=== PATIENT | male | born 1950 | race Caucasian/White ===

== ENCOUNTER → 2017-05-31 | Outpatient (CLI) | payer MEDICARE, BC ==
--- NOTE | 2017-05-31 10:25 | RAD ---
3 views right ankle 05/31/2017 2:00 AM Indication: RIGHT ANKLE PAIN X 1 DAY following injury Comparison: None Findings: There is diffuse edema noted surrounding the ankle. No fracture or dislocation is identified. Articular surfaces. An interrupted. Atherosclerotic vascular calcification is noted. Impression: Soft tissue edema about the ankle without evidence of acute fracture or alignment abnormality
== END | disposition home or self-care (01) ==
LOC: DXRADRC 08:24
PROVIDERS: ATTEND Nurse Practitioner Family
DX: M25.571 Pain in right ankle and joints of right foot (principal); I70.208 Unspecified atherosclerosis of native arteries of extremities, other extremity
CPT/HCPCS: 73610

== ENCOUNTER 2017-09-18 13:31 | Emergency (ER) | payer BC, MEDICARE ==
[~2017-09-18] VITALS: Ht 182.9 cm; Wt 97.5 kg
[2017-09-18 14:16] LABS: BASO # 0.1 x10^3/uL (0.0-0.2); BASO % 1 % (0-3); EOS # 0.1 x10^3/uL (0.0-0.7); EOS % 2 % (0-3); HEMATOCRIT 42.6 % (39.0-53.0); HEMOGLOBIN 14.9 g/dL (13.0-17.5); LYMPH # 1.3 x10^3/uL (1.0-4.8); LYMPH % 21 % (24-48); MEAN CORPUSCULAR HEMOGLOBIN 31 pg (25-35); MEAN CORPUSCULAR HGB CONC 35 g/dL (31-37); MEAN CORPUSCULAR VOLUME 88 fL (79-100); MONO # 0.5 x10^3/uL (0.0-1.1); MONO % 8 % (0-9); NEUT # 4.2 x10^3uL (1.8-7.7); NEUT % 68 % (31-73); PLATELET COUNT 178 x10^3/uL (140-400); RED BLOOD COUNT 4.84 x10^6/uL (4.30-5.70); RED CELL DISTRIBUTION WIDTH 12.9 % (11.5-14.5); WHITE BLOOD COUNT 6.2 x10^3/uL (4.0-11.0)
--- NOTE | 2017-09-18 14:21 | RAD ---
INDICATION: STROKE W/U COMPARISON: 06/09/2016 FINDINGS: Single view of chest obtained. No focal airspace consolidation. Mediastinal contour is unremarkable. No gross osseous destructive lesion. IMPRESSION: No focal airspace consolidation or edema.
--- NOTE | 2017-09-18 14:26 | RAD ---
INDICATION: DIZZINESS, SLURRED SPEECH COMPARISON: 12/12/2012 TECHNIQUE: Axial CT images obtained through the head without intravenous contrast. FINDINGS: No intracranial hemorrhage. No midline shift. Basal cisterns patents. Ventricles and sulci are globally prominent. Augustine white differentiation is maintained without evidence of acute ischemia to large vessel territory. No acute osseous abnormality. Orbits and paranasal sinuses unremarkable. Scattered foci of low attenuation within the white matter. IMPRESSION: 1. No acute intracranial hemorrhage. 2. Scattered regions of low attenuation within the white matter. Non-specific in nature but frequently secondary to small vessel ischemic disease. If there is any concern for acute etiology clinically a follow-up MRI could be obtained to ensure that none of these foci are acute. This includes a focus within the right side of the cerebellum that was not present on prior exam and could be acute or chronic. 3. Prominence of ventricles and sulci which is frequently secondary to age related volume loss. PQRS Compliance Statement: One or more of the following individualized dose reduction techniques were utilized for this examination: 1. Automated exposure control 2. Adjustment of the mA and/or kV according to patient size 3. Use of iterative reconstruction technique
[2017-09-18 14:35] LABS: ALBUMIN/GLOBULIN RATIO 1.4 (1.0-1.7); CALCIUM 9.3 mg/dL (8.5-10.1); CREATININE 1.3 mg/dL (0.7-1.3); GFR 54.9; MAGNESIUM 2.1 mg/dL (1.8-2.4); POTASSIUM 5.4 mmol/L (3.5-5.1); TOTAL BILIRUBIN 0.7 mg/dL (0.2-1.0); TOTAL PROTEIN 6.8 g/dL (6.4-8.2)
[2017-09-18] MEDS ORDERED: ASPIRIN 81 MG TAB.CHEW PO ONE (15:30)
--- NOTE | 2017-09-18 16:37 | EKG ---
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
[2017-09-18] MEDS ORDERED: LISINOPRIL 20 MG TABLET PO ONE (16:45)
[2017-09-18] MEDS ORDERED: GABAPENTIN 300 MG CAPSULE. PO ONE (16:45)
--- NOTE | 2017-09-18 17:07 | PHYS DOC ---
Adult General Chief Complaint Chief Complaint: DIZZY/LIGHT HEADED HPI HPI Patient is a 67-year-old male presenting to the emergency department for evaluation of episodes of ataxic gait slurred speech that have been going on for the past 2-3 days. He says that the symptoms are very obvious to his or his slurred speech and he is unable to control his feet and walk appropriately however he feels currently he is at his baseline. Patient denies any fevers chills nausea vomiting trauma. He is in no obvious distress with normal vital signs. Review of Systems Review of Systems Constitutional: Denies fever or chills [] Eyes: Denies change in visual acuity, redness, or eye pain [] HENT: Denies nasal congestion or sore throat [] Respiratory: Denies cough or shortness of breath [] Cardiovascular: No additional information not addressed in HPI [] GI: Denies abdominal pain, nausea, vomiting, bloody stools or diarrhea [] : Denies dysuria or hematuria [] Musculoskeletal: Denies back pain or joint pain [] Integument: Denies rash or skin lesions [] Neurologic: Denies headache, focal weakness or sensory changes [] All other systems were reviewed and found to be within normal limits, except as documented in this note. Current Medications Current Medications Current Medications Medications (Trade) Dose Ordered Sig/Pauly Start Time Stop Time Status Last Admin Dose Admin Aspirin (Children'S Aspirin) 324 mg 1X ONCE 09/18/17 15:30 09/18/17 15:31 DC 09/18/17 16:08 324 MG Gabapentin (Neurontin) 600 mg 1X ONCE 09/18/17 16:45 09/18/17 16:46 DC 09/18/17 16:45 600 MG Lisinopril (Prinivil) 40 mg 1X ONCE 09/18/17 16:45 09/18/17 16:46 DC 09/18/17 16:45 40 MG Allergies Allergies Allergies Coded Allergies Type Severity Reaction Last Updated Verified No Known Drug Allergies 09/18/17 No Physical Exam Physical Exam Constitutional: Well developed, well nourished, no acute distress, non-toxic appearance. [] HENT: Normocephalic, atraumatic, bilateral external ears normal, oropharynx moist, no oral exudates, nose normal. [] Eyes: PERRLA, EOMI, conjunctiva normal, no discharge. [] Neck: Normal range of motion, no tenderness, supple, no stridor. [] Cardiovascular:Heart rate regular rhythm, no murmur [] Lungs & Thorax: Bilateral breath sounds clear to auscultation [] Abdomen: Bowel sounds normal, soft, no tenderness, no masses, no pulsatile masses. [] Skin: Warm, dry, no erythema, no rash. [] Back: No tenderness, no CVA tenderness. [] Extremities: No tenderness, no cyanosis, no clubbing, ROM intact, no edema. [] Neurologic: Alert and oriented X 3, normal motor function, normal sensory function, no focal deficits noted. [] Current Patient Data Vital Signs Vital Signs Date Time Temp Pulse Resp B/P (MAP) Pulse Ox O2 Delivery O2 Flow Rate FiO2 09/18/17 16:45 62 147/87 Lab Results Laboratory Tests Test 09/18/17 14:01 White Blood Count 6.2 x10^3/uL (4.0-11.0) Red Blood Count 4.84 x10^6/uL (4.30-5.70) Hemoglobin 14.9 g/dL (13.0-17.5) Hematocrit 42.6 % (39.0-53.0) Mean Corpuscular Volume 88 fL (79-100) Mean Corpuscular Hemoglobin 31 pg (25-35) Mean Corpuscular Hemoglobin Concent 35 g/dL (31-37) Red Cell Distribution Width 12.9 % (11.5-14.5) Platelet Count 178 x10^3/uL (140-400) Neutrophils (%) (Auto) 68 % (31-73) Lymphocytes (%) (Auto) 21 % (24-48) L Monocytes (%) (Auto) 8 % (0-9) Eosinophils (%) (Auto) 2 % (0-3) Basophils (%) (Auto) 1 % (0-3) Neutrophils # (Auto) 4.2 x10^3uL (1.8-7.7) Lymphocytes # (Auto) 1.3 x10^3/uL (1.0-4.8) Monocytes # (Auto) 0.5 x10^3/uL (0.0-1.1) Eosinophils # (Auto) 0.1 x10^3/uL (0.0-0.7) Basophils # (Auto) 0.1 x10^3/uL (0.0-0.2) Prothrombin Time 10.1 SEC (9.4-11.4) Prothrombin Time INR 1.0 (0.9-1.1) PTT 26 SEC (23-33) Sodium Level 143 mmol/L (136-145) Potassium Level 5.4 mmol/L (3.5-5.1) H Chloride Level 106 mmol/L (98-107) Carbon Dioxide Level 31 mmol/L (21-32) Anion Gap 6 (6-14) Blood Urea Nitrogen 15 mg/dL (8-26) Creatinine 1.3 mg/dL (0.7-1.3) Estimated GFR (Cockcroft-Gault) 54.9 BUN/Creatinine Ratio 12 (6-20) Glucose Level 103 mg/dL (70-99) H Calcium Level 9.3 mg/dL (8.5-10.1) Magnesium Level 2.1 mg/dL (1.8-2.4) Total Bilirubin 0.7 mg/dL (0.2-1.0) Aspartate Amino Transferase (AST) 23 U/L (15-37) Alanine Aminotransferase (ALT) 43 U/L (16-63) Alkaline Phosphatase 91 U/L (46-116) Troponin I Quantitative < 0.017 ng/mL (0-0.055) CW-Nzs-O-Type Natriuretic Peptide 26 pg/mL (0-124) Total Protein 6.8 g/dL (6.4-8.2) Albumin 4.0 g/dL (3.4-5.0) Albumin/Globulin Ratio 1.4 (1.0-1.7) EKG EKG Sinus rhythm at 67 beats per minutes with normal axis no obvious ST elevation or depression and normal T waves. Radiology/Procedures Radiology/Procedures INDICATION: STROKE W/U COMPARISON: 06/09/2016 FINDINGS: Single view of chest obtained. No focal airspace consolidation. Mediastinal contour is unremarkable. No gross osseous destructive lesion. IMPRESSION: No focal airspace consolidation or edema. INDICATION: DIZZINESS, SLURRED SPEECH COMPARISON: 12/12/2012 TECHNIQUE: Axial CT images obtained through the head without intravenous contrast. FINDINGS: No intracranial hemorrhage. No midline shift. Basal cisterns patents. Ventricles and sulci are globally prominent. Augustine white differentiation is maintained without evidence of acute ischemia to large vessel territory. No acute osseous abnormality. Orbits and paranasal sinuses unremarkable. Scattered foci of low attenuation within the white matter. IMPRESSION: 1. No acute intracranial hemorrhage. 2. Scattered regions of low attenuation within the white matter. Non-specific in nature but frequently secondary to small vessel ischemic disease. If there is any concern for acute etiology clinically a follow-up MRI could be obtained to ensure that none of these foci are acute. This includes a focus within the right side of the cerebellum that was not present on prior exam and could be acute or chronic. 3. Prominence of ventricles and sulci which is frequently secondary to age related volume loss. PQRS Compliance Statement: One or more of the following individualized dose reduction techniques were utilized for this examination: 1. Automated exposure control 2. Adjustment of the mA and/or kV according to patient size 3. Use of iterative reconstruction technique DICTATED AND SIGNED BY: RENATO HOANG MD DATE: 09/18/17 1419 DICTATED AND SIGNED BY: RENATO HOANG MD DATE: 09/18/17 141 Course & Med Decision Making Course & Med Decision Making Patient with signs and symptoms of vertebrobasilar insufficiency but are coming and going. He does have some CT changes on his cerebellum. I spoke to Dr. Serra and he requested patient to be sent to [facility] and he will likely need vascular studies an MRI. Patient transferred in guarded condition. Dragon Disclaimer Dragon Disclaimer This electronic medical record was generated, in whole or in part, using a voice recognition dictation system. Departure Departure: Impression: Primary Impression: VBI (vertebrobasilar insufficiency) Disposition: 05 XFER OTHER ([facility]) Condition: GUARDED Referrals: KESHAWN KEY (PCP) JADON HAWKINS DO Sep 18, 2017 17:07
[2017-09-18 17:53] VITALS: BP 161/88
== END 2017-09-18 19:27 | disposition short-term general hospital (02) ==
LOC: ER 13:31
DX: G45.0 Vertebro-basilar artery syndrome (principal)
CPT/HCPCS: 36415; 70450; 71045; 80053; 83735; 83880; 84484; 85025; 85610; 85730; 93005; 99285-25

== ENCOUNTER → 2020-12-22 | Outpatient (CLI) | payer MEDICARE ==
--- NOTE | 2020-12-22 15:48 | RAD ---
XR ELBOW COMPLETE_RIGHT 3+ VIEWS, XR RT WRIST 3VIEWS Clinical Indication: Reason: ELBOW AND WRIST PAIN FALL 2 DAYS AGO / Spl. Instructions: / History: Comparison: None. Findings: There is acute traumatic fracture of the proximal radial head. There is cortical disruption of the ra dial head noted on the AP view. There is a subtle cortical defect on the lateral view. There is elbow joint lipohemarthrosis. No acute fracture of the elbow is otherwise seen. There is no appreciable so ft tissue swelling. No radiopaque foreign body. The mineralization is normal. There is no acute fracture or dislocation of the wrist. The joint spaces are maintained. The minerali zation is normal. No soft tissue swelling seen radiographically. IMPRESSION: 1. Acute traumatic nondisplaced fracture of the proximal radial head. 2. No acute fracture of the wrist. 3. Elbow joint lipohemarthrosis. Electronically signed by: Bob Massey MD (12/22/2020 3:45 PM) [id number]
== END ==
LOC: DXRAD 15:19
PROVIDERS: ATTEND Physician Assistant
DX: S52.124A Nondisplaced fracture of head of right radius, initial encounter for closed fracture (principal); X58.XXXA Exposure to other specified factors, initial encounter; Y93.89 Activity, other specified; Y92.89 Other specified places as the place of occurrence of the external cause; Y99.8 Other external cause status
CPT/HCPCS: 73080; 73110

== ENCOUNTER → 2021-08-22 | Outpatient (CLI) | payer MEDICARE, OTHER ==
[2021-08-22 14:41] LABS: BASO % 0 % (0-3); EOS # 0.2 x10^3/uL (0.0-0.7); EOS % 3 % (0-3); HEMATOCRIT 38.3 % (39.0-53.0); HEMOGLOBIN 13.3 g/dL (13.0-17.5); LYMPH # 0.3 x10^3/uL (1.0-4.8); LYMPH % 4 % (24-48); MEAN CORPUSCULAR HEMOGLOBIN 32 pg (25-35); MEAN CORPUSCULAR HGB CONC 35 g/dL (31-37); MEAN CORPUSCULAR VOLUME 92 fL (79-100); MONO # 0.7 x10^3/uL (0.0-1.1); MONO % 8 % (0-9); NEUT # 7.3 x10^3uL (1.8-7.7); NEUT % 86 % (31-73); PLATELET COUNT 198 x10^3/uL (140-400); RED BLOOD COUNT 4.17 x10^6/uL (4.30-5.70); RED CELL DISTRIBUTION WIDTH 12.7 % (11.5-14.5); WHITE BLOOD COUNT 8.5 x10^3/uL (4.0-11.0)
[2021-08-22 14:45] LABS: ALBUMIN 3.1 g/dL (3.4-5.0); ALBUMIN/GLOBULIN RATIO 0.8 (1.0-1.7); C REACTIVE PROTEIN 218.7 mg/L (0-3.3); CALCIUM 8.6 mg/dL (8.5-10.1); CREATININE 1.8 mg/dL (0.7-1.3); GFR 37.3; POTASSIUM 4.2 mmol/L (3.5-5.1); TOTAL PROTEIN 7.1 g/dL (6.4-8.2)
[2021-08-22 15:53] LABS: SEDIMENTATION RATE 83 (0-15)
--- NOTE | 2021-08-23 12:15 | RAD ---
EXAM: XR CHEST 2V 08/22/2021 2:04 PM CLINICAL INDICATION: Cough, congestion, sinus drainage COMPARISON: Chest radiograph 09/18/2017 TECHNIQUE: PA and lateral views of the chest FINDINGS: The heart and mediastinum are normal. Lungs are well-expanded and clear. No consolidatio n, pleural effusion, or pneumothorax. Pulmonary vascularity is normal. There is degenerative disc di sease and bridging osteophytes throughout the thoracic spine. IMPRESSION: No acute cardiopulmonary abnormality. Electronically signed by: Laura Rutherford MD (08/23/2021 12:13 PM) [id number]
--- NOTE | 2021-08-23 12:16 | RAD ---
EXAM: XR PARANASAL SINUSES COMPLETE 3+VIEWS 08/22/2021 2:08 PM CLINICAL INDICATION: Fever, cough, sinus drainage COMPARISON: None TECHNIQUE: 3 views of the sinuses FINDINGS: Paranasal sinuses and mastoid air cells are clear. No fluid levels. No displaced fracture. IMPRESSION: No fluid levels in the sinuses to suggest acute sinusitis. Electronically signed by: Laura Rutherford MD (08/23/2021 12:14 PM) [id number]
== END ==
LOC: LAB 13:37
PROVIDERS: ATTEND Family Medicine
DX: U07.1 COVID-19 (principal); R42 Dizziness and giddiness; M51.34 Other intervertebral disc degeneration, thoracic region; M25.78 Osteophyte, vertebrae
CPT/HCPCS: 70220; 71046; 80053; 85025; 85651; 86140; U0003

== ENCOUNTER 2021-08-30 21:44 | Inpatient (IN) | payer MEDICARE ==
[~2021-08-30] VITALS: Ht 182.9 cm; Wt 84.5 kg
--- NOTE | 2021-08-30 21:48 | PHYS DOC ---
Past History Past Medical History: A-Fib, Arthritis, CAD, Hypertension, TIA Past Surgical History: Appendectomy, Tonsillectomy Alcohol Use: None Drug Use: None General Adult HPI: HPI: ".. I got COVID.. had it over two weeks.. been positive on two tests. since then... I just don't seem to be getting better,., more short of breath.. was on only 3 lit. of oxygen.. but my sats were below 90.. My daughter told me to turn it up... she a nurse at [employer]... " ". I did get my COVID shots early.. last year.. I never got my booster...".. " now. she said to turn up the oxygen and come to the hospital..." Patient is a 71 year old male who presents with above hx of Covid infection , increased dsypnea and oxygen demand. Patient did receive 2 Covid vaccinations earlier last year. Has never received booster. Patient denies any recent travel no recent changes in meds. Reports extreme fatigue and dyspnea with any attempts at movement. Patient complains of fever, chills, dyspnea, nonproduc tive cough, myalgia, arthralgia, malaise. Has not received flu vaccination this season. Denies any history immunosuppression. Normally follows with Dr. Pasquale Alexandre. Review of Systems: Review of Systems: Constitutional: Complains of fever or chills Eyes: Denies change in visual acuity HENT: Denies nasal congestion or sore throat Respiratory: Complains of nonproductive cough and shortness of breath Cardiovascular: Denies chest pain or edema GI: Denies abdominal pain, nausea, vomiting, bloody stools or diarrhea : Denies dysuria Musculoskeletal: Denies back pain or joint pain Integument: Denies rash Neurologic: Denies headache, focal weakness or sensory changes Endocrine: Denies polyuria or polydipsia Lymphatic: Denies swollen glands Psychiatric: Denies depression or anxiety Family History: Family History: Noncontributory to presentation Current Medications: Current Meds: See nursing for home meds Allergies: Allergies: Allergies Coded Allergies Type Severity Reaction Last Updated Verified No Known Drug Allergies 09/18/17 No Physical Exam: PE: Constitutional: Moderate acute distress, non-toxic appearance. [] HENT: Normocephalic, atraumatic, bilateral external ears normal, oropharynx moist, no oral exudates, nose clear rhinorrhea Eyes: PERRLA, EOMI, conjunctiva normal, no discharge. [] Neck: Normal range of motion, no tenderness, supple, no stridor. [] Cardiovascular:Heart tachycardia regular rhythm, no murmur [] PMI to the left Lungs & Thorax: Bilateral breath equal at apex with scattered wheezes and rhonchi and crackles throughout. Auscultation had more crackles on right base. Abdomen: Bowel sounds normal, soft, no tenderness, no masses, no pulsatile masses. [] Skin: Warm, dry, no erythema, no rash. Poor turgor Back: No tenderness, no CVA tenderness. [] Extremities: No tenderness, no cyanosis, no clubbing, ROM intact, no edema. Arthritic changes Neurologic: Alert and oriented X 3, normal motor function, normal sensory function, no focal deficits noted. [] Psychologic: Affect anxious, judgement normal, mood normal. [] EKG: EKG: My interpretation of EKG shows a sinus rhythm at 70 bpm. No acute morphology. Time of EKG is 2258 hrs. [] Radiology/Procedures: Radiology/Procedures: [][place] [address] IMAGING REPORT Signed PATIENT: FRANCHESCA RAI ACCOUNT: [id number] : 1950 LOCATION: ER AGE: 71 SEX: M EXAM STATUS: REG ER ORD. PHYSICIAN: EDY BENNETT MD REASON: hypoxia PROCEDURE: PORTABLE CHEST 1V EXAM: AP View of the chest DATE: 08/30/2021 10:33 PM INDICATION: Reason: hypoxia / Spl. Instructions: / History: COMPARISON: 08/22/2021 09/18/17 FINDINGS: The heart is not enlarged. Mediastinal and hilar contours are normal. Diffuse right lung and left lower lung airspace opacities likely consolidative process such as pneumonia No pleural effusion or pneumothorax. IMPRESSION: Diffuse right lung and left lower lung airspace opacities likely consolidative process such as pneumonia Electronically signed by: Rony Payne MD (08/30/2021 11:26 PM) [facility] DICTATED AND SIGNED BY: RONY PAYNE MD DATE: 08/30/21 4212 CC: EDY BENNETT MD; PASQUALE CHAVEZ ~MTH0 0 Heart Score: C/O Chest Pain: N/A HEART Score for Chest Pain: HEART Score for Chest Pain Response (Comments) Value History Slighlty/Non-Suspicious 0 ECG Normal 0 Age > 65 2 Risk Factors 1 or 2 Risk Factors 1 Troponin < Normal Limit 0 Total 3 Risk Factors: Risk Factors: DM, Current or recent (<one month) smoker, HTN, HLP, family histo ry of CAD, obesity. Risk Scores: Score 0 - 3: 2.5% MACE over next 6 weeks - Discharge Home Score 4 - 6: 20.3% MACE over next 6 weeks - Admit for Clinical Observation Score 7 - 10: 72.7% MACE over next 6 weeks - Early Invasive Strategies Course & Med Decision Making: Course & Med Decision Making Pertinent Labs and Imaging studies reviewed. (See chart for details) Discussed presentation, testing and tx. plan with Dr. Dozier. Advised would not admit to [facility] since we have no ICU Beds or Ventilators. Advised he would have to be a hold in ED until bed open up for transfer. Discussed presentation, testihng and treatment plan with Dr. Serra- Will accept at [facility] if beb becomes available. Currently all [facility] beds are on high volumes and holding pt., in ED's Pt. Endorsed to Dr. Garrett at shift change- pending transfer. Impression: 1. Respiratory failure hypoxia 2. Hx. COVID + 3. COViD pneumonia vs Atypical Pneumoia 4. Renal Insuf. 34 BUN/ Creat. 1.4 5. Elevated Mag. 2.7 6. Elevated AST 62, ALT 117, Alk Phos,. 198 7. Elevated D-dimer 2.05 8. Current COVID test is negative [] Dragon Disclaimer: Dragon Disclaimer: This electronic medical record was generated, in whole or in part, using a voice recognition dictation system. Departure Departure: Referrals: PASQUALE CHAVEZ (PCP) [place] Disclaimer This chart was dictated in whole or in part using Voice Recognition software in a busy, high-work load, and often noisy Emergency Department environment. It ma y contain unintended and wholly unrecognized errors or omissions. Dragon Disclaimer This chart was dictated in whole or in part using Voice Recognition software in a busy, high-work load, and often noisy Emergency Department environment. It may contain unintended and wholly unrecognized errors or omissions. EDY BENNETT MD Aug 30, 2021 21:48
[2021-08-30] MEDS ORDERED: ASPIRIN CHEWABLE 81 MG TABLET. PO ONE (22:30)
[2021-08-30] MEDS ORDERED: ALBUTEROL SULFATE 8GM INHALER. INH ONE (22:30)
[2021-08-30 22:33] LABS: BASO # 0.1 x10^3/uL (0.0-0.2); BASO % 1 % (0-3); EOS # 1.1 x10^3/uL (0.0-0.7); EOS % 14 % (0-3); HEMATOCRIT 41.4 % (39.0-53.0); HEMOGLOBIN 14.3 g/dL (13.0-17.5); LYMPH % 13 % (24-48); MEAN CORPUSCULAR HEMOGLOBIN 32 pg (25-35); MEAN CORPUSCULAR HGB CONC 35 g/dL (31-37); MEAN CORPUSCULAR VOLUME 93 fL (79-100); MONO # 0.5 x10^3/uL (0.0-1.1); MONO % 6 % (0-9); NEUT # 5.1 x10^3uL (1.8-7.7); NEUT % 66 % (31-73); PLATELET COUNT 305 x10^3/uL (140-400); RED BLOOD COUNT 4.44 x10^6/uL (4.30-5.70); RED CELL DISTRIBUTION WIDTH 12.7 % (11.5-14.5); WHITE BLOOD COUNT 7.7 x10^3/uL (4.0-11.0)
[2021-08-30 22:37] LABS: CREATININE 1.4 mg/dL (0.7-1.3); GFR 49.8; POTASSIUM 4.5 mmol/L (3.5-5.1)
[2021-08-30 22:53] LABS: ALBUMIN 2.5 g/dL (3.4-5.0); DIRECT BILIRUBIN 0.3 mg/dL (0.0-0.2); MAGNESIUM 2.7 mg/dL (1.8-2.4); TOTAL BILIRUBIN 0.6 mg/dL (0.2-1.0); TOTAL PROTEIN 7.4 g/dL (6.4-8.2)
[2021-08-30] MEDS: IV RINGERS SOLUTION,LACTATED 1,000 ML IV SCH (22:56)
--- NOTE | 2021-08-30 23:28 | RAD ---
EXAM: AP View of the chest DATE: 08/30/2021 10:33 PM INDICATION: Reason: hypoxia / Spl. Instructions: / History: COMPARISON: 08/22/2021 09/18/17 FINDINGS: The heart is not enlarged. Mediastinal and hilar contours are normal. Diffuse right lung and left lower lung airspace opacities likely consolidative process such as pneumo derek No pleural effusion or pneumothorax. IMPRESSION: Diffuse right lung and left lower lung airspace opacities likely consolidative process such as pneumo derek Electronically signed by: Rony Pimentel MD (08/30/2021 11:26 PM) ROBERT
[2021-08-30] MEDS ORDERED: AZITHROMYCIN 250 MG TABLET. PO ONE (23:45)
[2021-08-31 00:20] LABS: INFLUENZA A PATIENT NEGATIVE (NEGATIVE); INFLUENZA B PATIENT NEGATIVE (NEGATIVE)
[2021-08-31 00:26] LABS: BACTERIA,URINE 0 /HPF (0-FEW); BILIRUBIN,URINE NEG (NEG); CLARITY,URINE CLEAR; COLOR,URINE YELLOW; GLUCOSE,URINE NEG (NEG); NITRITE,URINE NEG (NEG); RBC,URINE 0 /HPF (0-2); SQUAMOUS EPITHELIAL CELL,UR OCC /LPF; UROBILINOGEN,URINE 0.2 mg/dL (0.2 mg/dL); WBC,URINE OCC /HPF (0-4)
[2021-08-31] MEDS: IV RINGERS SOLUTION,LACTATED 1,000 ML IV SCH (01:28)
--- NOTE | 2021-08-31 03:32 | EKG ---
[address] [address] Test Date: 2021-08-30 Test Time: 22:58:03 Pat Name: FRANCHESCA RAI Department: Room: Gender: M Application Support: SAI : 1950 Requested By: EDY BENNETT Order Number: [id number] Reading MD: Ronal Baird Measurements Intervals [place] Rate: 78 P: 38 CO: 160 QRS: 14 QRSD: 78 T: 26 QT: 368 QTc: 423 Interpretive Statements SINUS RHYTHM Electronically Signed On 09-02-2021 16:18:27 DIE MAKER APPRENTICE by Ronal Baird
--- NOTE | 2021-08-31 03:35 | EKG ---
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
[2021-08-31] MEDS ORDERED: IOHEXOL 350 MG/ML 100 ML VIAL. IV ONE (07:00)
[2021-08-31] MEDS ORDERED: CONTRAST GIVEN. MC PRN (07:00)
[2021-08-31] MEDS ORDERED: IV NORMAL SALINE 50ML 50 ML ONE (07:10)
[2021-08-31] MEDS ORDERED: cefTRIAXone SODIUM 1 GM VIAL ONE (07:10)
--- NOTE | 2021-08-31 07:43 | RAD ---
PQRS Compliance Statement: One or more of the following individualized dose reduction techniques were utilized for this examinat ion: 1. Automated exposure control 2. Adjustment of the mA and/or kV according to patient size 3. Use of iterative reconstruction technique CTA CHEST 08/31/2021 6:[address] angiography chest with contrast 08/31/2021 6:57 AM INDICATION: Hypoxia, shortness of breath COMPARISON: None available TECHNIQUE: Axial CT images of the chest were obtained after the intravenous administration of nonioni c contrast. Coronal and sagittal reformats are provided. Maximum intensity projection images of the t horacic vasculature are provided. FINDINGS: The thyroid gland is normal in appearance. Right hilar lymph node measures 1.5 cm by short axis (seri es 4, image 70). Right hilar lymph node measures 1.5 cm by short axis (series 4, image 82). Left sanchez r lymph node measures 0.8 cm (series 4, image 78). The heart size is within normal limits. No signifi cant pericardial effusion. Thoracic aorta is normal in course and caliber. There is adequate opacification of the pulmonary arterial system. There there are no filling defects within the pulmonary arterial system to suggest acute or chronic pulmonary embolus. There are moderate areas of consolidative change identified within the superior segment lower lobes a nd posterior basal segment lower lobes bilaterally. Patchy consolidative change with associated groun dglass opacities identified within the lingula, medial segment right middle lobe and more confluent c onsolidative changes identified within the posterior lateral right upper lobe. Findings favor multifo arik pneumonia. Trace left pleural effusion. No pulmonary vascular congestion or pneumothorax. Visualized portions of the upper abdomen are within normal limits. No suspicious osseous lesions are visualized. IMPRESSION: There is no evidence for acute or chronic pulmonary embolism. Multifocal consolidative changes involving all lobes of the lungs favor multifocal pneumonia. Right h ilar lymphadenopathy is likely reactive. Recommend follow-up to resolution. Electronically signed by: Ariadne Mcnamara MD (08/31/2021 7:40 AM) [facility]
--- NOTE | 2021-08-31 08:29 | EKG ---
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
[2021-08-31] MEDS ORDERED: APIXABAN 5 MG TABLET. PO SCH ×2 (11:00)
[2021-08-31] MEDS: ENOXAPARIN 40 MG/0.4 ML SYRINGE. SQ SCH (11:26)
[2021-08-31] MEDS ORDERED: ACETAMINOPHEN 325 MG TABLET PO PRN (17:15)
[2021-08-31] MEDS ORDERED: NITROGLYCERIN SUBLINGUAL 0.4 MG BOTTLE OF 25. SL PRN (17:15)
--- NOTE | 2021-08-31 20:45 | NUR ---
ADMISSION: The patient, FRANCHESCA RAI, 71 y/o, M admitted by HUMBERTO SWEET MD, was given written information regarding hospital policies, unit procedures and contact persons. Pt arrived to room 103 via gurney, accompanied by [facility] and nursing sup. Pt here for COVID pneumonia, hypoxia. Pt reports he has been ill for over 3 weeks and has had 3 positive COVID swabs with increasing SOA that brought him into the ED for treatment. Pt currently on 5L supplemental O2 via NC with SpO2 of 90%. Pt placed on monitor and storage bin tender, showing afib with controlled rate in the 80's. PMH reviewed, and pt's contacted for med list. Notified Dr. Sweet of pt arrival and orders received. Discussed POC with pt, V/U. Call light in reach. Pt currently sitting in bed watching TV, box lunch and H2O provided. Valuables were checked and logged. Left in room with pt.
[2021-08-31 21:26] VITALS: BP 153/82
[2021-08-31] MEDS ORDERED: ASPI-889 PO (21:49)
[2021-08-31] MEDS ORDERED: CARB200T4 PO (21:49)
[2021-08-31] MEDS ORDERED: LOSA50TA86 PO (21:49)
[2021-08-31] MEDS ORDERED: CRESTOR5 MG PO (21:49)
[2021-08-31] MEDS: carBAMazepine 200 MG TABLET PO SCH (22:24)
[2021-08-31] MEDS: MELATONIN 3 MG TABLET PO PRN (22:24)
[2021-08-31] MEDS: LOSARTAN 50 MG TABLET. PO SCH (22:24)
[2021-09-01] VITALS (16 sets, daily range): BP systolic 105–142; BP diastolic 61–83
--- NOTE | 2021-09-01 01:29 | NUR ---
Pt condition is deteriorating. Pt came up from ED on 5L NC and maintaining SpO2 at around 90%, upon recheck--pt sating low 80's on the 5L and required supplemental O2 be titrated to 10L to improve sats to 91-92%. Pt reports he is still SOA at rest and unable to even sit up in bed without feeling winded. Dr. Serra notified of pt's worsening condition. Ordered to upgrade to ICU status and begin Remdesivir pending approval by pharmacy and Dr. Valdez. Nursing sup (Adrianne) given details on pt condition and contacted both Dr. Valdez and [facility] pharmacist, Porfirio. Pt does not meet criteria for Remdesivir as he has been COVID+ > 14 days. Pt moved to ICU bed 2 with all belongings and placed on monitor with continuous pulse ox.
[2021-09-01 07:33] LABS: BASO # 0.1 x10^3/uL (0.0-0.2); BASO % 1 % (0-3); EOS # 0.9 x10^3/uL (0.0-0.7); EOS % 14 % (0-3); HEMATOCRIT 38.3 % (39.0-53.0); LYMPH % 16 % (24-48); MEAN CORPUSCULAR HEMOGLOBIN 32 pg (25-35); MEAN CORPUSCULAR HGB CONC 34 g/dL (31-37); MEAN CORPUSCULAR VOLUME 93 fL (79-100); MONO # 0.5 x10^3/uL (0.0-1.1); MONO % 8 % (0-9); NEUT # 3.7 x10^3uL (1.8-7.7); NEUT % 61 % (31-73); PLATELET COUNT 282 x10^3/uL (140-400); RED CELL DISTRIBUTION WIDTH 12.6 % (11.5-14.5); WHITE BLOOD COUNT 6.1 x10^3/uL (4.0-11.0)
[2021-09-01] MEDS: AZITHROMYCIN 250 MG TABLET. PO SCH (08:48)
[2021-09-01] MEDS: LACTOBACILLUS RHAMNOSUS GG 1 CAPSULE. PO SCH ×2 (08:48→20:05)
[2021-09-01] MEDS: LOSARTAN 50 MG TABLET. PO SCH ×2 (08:48→20:05)
[2021-09-01] MEDS: ASPIRIN ENTERIC COATED 81 MG TABLET.DR. PO SCH (08:48)
[2021-09-01] MEDS: ATORVASTATIN CALCIUM 20 MG TABLET PO SCH (08:48)
[2021-09-01] MEDS: BUDESONIDE 0.5 MG/2 ML NEBU NEB SCH ×2 (08:49→19:50)
[2021-09-01] MEDS: DEXAMETHASONE SOD PHOS 4 MG/ML VIAL. IVP SCH (08:49)
[2021-09-01] MEDS ORDERED: CHOLECALCIFEROL (VITAMIN D3) 50,000 UNIT CAPSULE PO SCH (09:00)
[2021-09-01 10:08] LABS: CALCIUM 8.8 mg/dL (8.5-10.1); CREATININE 1.2 mg/dL (0.7-1.3); GFR 59.5
[2021-09-01] MEDS: FAMOTIDINE 20 MG TABLET PO SCH ×2 (11:46→20:05)
[2021-09-01] MEDS: ASCORBIC ACID 1,000 MG TABLET PO SCH (11:47)
[2021-09-01] MEDS: ENOXAPARIN 40 MG/0.4 ML SYRINGE. SQ SCH (11:47)
[2021-09-01] MEDS: carBAMazepine 200 MG TABLET PO SCH ×2 (11:53→20:04)
--- NOTE | 2021-09-01 16:54 | HP ---
DATE OF SERVICE: 09/01/2021 ADMIT DATE: 08/31/2021 HISTORY OF PRESENT ILLNESS: The patient is a 71-year-old male patient who presented to the Emergency Room of [facility] with a complaint of worsening shortness of breath and increasing requirement of oxygen. He was on 3 liters of oxygen, but his saturations were below 90. His daughter, who is an RN at [facility], asked him to turn the oxygen up; however, he continued to have borderline oxygen and therefore, his daughter asked him to come to the Emergency Room, where he was extensively investigated. He apparently was vaccinated for COVID-19 using Moderna last year; however, he never got his booster. He had denied any recent travel or recent change in medication. Reports extreme fatigue and dyspnea with any attempts at movement. He did complain of fever, chills, dyspnea, nonproductive cough, myalgias, arthralgias, malaise, has not received flu vaccination this season. Denied any history of immunosuppression. He is following with ____. He was extensively investigated in the Emergency Room and has had lab work as well as imaging studies. His white cell count was normal at 7.7, with normal platelets. His chemistry showed that his liver enzymes are elevated other than bad kidney function. His D-dimer was high at 2.05. His urinalysis is essentially unremarkable and his coronavirus PCR was positive. His influenza A and B were negative. Has had a chest x-ray, which showed that the patient's mediastinal and hilar contours are normal. The heart is not enlarged. He has diffuse right lung and left lower lung airspace opacities, likely consolidative process, such as pneumonia. No pleural effusion or pneumothorax. CT angio showed there is no evidence of acute or chronic pulmonary embolism, multifocal consolidative changes involving all lobes of the lungs, favor multifocal pneumonia. The right hilar lymphadenopathy is likely reactive. Recommend followup for resolution. The patient was admitted with COVID-19 pneumonia, acute hypoxic respiratory failure. He was started on IV antibiotic in the form of ceftriaxone as well as Zithromax and dexamethasone, and apparently, he did not qualify for the remdesivir and started also on Lovenox 40 mg subcutaneously every 12 hours. Continued all his other medications. PAST MEDICAL HISTORY: Significant for hypertension, hyperlipidemia, obstructive sleep apnea, generalized osteoarthritis. Had had 2 episodes of TIAs before trigeminal neuralgia, shingles, and postherpetic neuralgia. PAST SURGICAL HISTORY: Significant for tonsillectomy, hemorrhoidectomy, left wrist fracture x 2. He has appendectomy and back surgery. ALLERGIES: He has no known drug allergies. MEDICATIONS: He is currently on the following medications: Crestor 5 mg at bedtime, losartan potassium 50 mg twice a day, aspirin 81 mg once a day and carbamazepine 200 mg twice a day for trigeminal neuralgia. FAMILY HISTORY: Had one brother older at the age of 77 because of congenital, probably cerebral palsy. Has two sisters, one has breast cancer. His father at the age of 88 due to ruptured abdominal aortic aneurysm. His mother at the age of 80 from sudden cardiac . SOCIAL HISTORY: He is , has 2 sons. Never smoked. Drinks alcohol once a year. Does not use any drugs. 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 REVIEW OF SYSTEMS: The patient denied any blurring of vision, cataracts, glaucoma or macular degeneration. Denied any earache, tinnitus or sensory deafness. Denied nosebleed, stuffy nose, or postnasal drip. Denied any sore throat, sore tongue, toothache, hoarseness of voice, or difficulty swallowing. Denied any nausea, vomiting, diarrhea or constipation. Denied any hematemesis, melena or hematochezia. Denied any dysuria, frequency or hematuria. Denied any chest pain. Did complain of shortness of breath. Denied any orthopnea or paroxysmal nocturnal dyspnea. Did complain of cough, mostly dry. PHYSICAL EXAMINATION: GENERAL: On arrival to the Emergency Room, the patient was somewhat pale, not jaundiced, cyanosed, no lymphadenopathy, no thyromegaly, no jugular venous distention. No limb edema. VITAL SIGNS: His heart rate was 77, blood pressure was 134/81, temperature was 98, respiratory rate was 18 and oxygen saturation was 92% on 5 liters of oxygen. HEAD, EYES, EARS, NOSE AND THROAT: Normocephalic, atraumatic. NECK: Supple. HEART: Showed normal first and second heart sounds. No gallop, rub or murmur. CHEST: Shows central trachea, equal bilateral chest expansion, air entry, vesicular breath sounds with bilateral basal crepitation, more so posteriorly. ABDOMEN: Distended, soft, nontender, no guarding or rigidity. No organomegaly. All hernial orifice intact. Bowel sounds normal. NEUROLOGIC: He was awake, alert, responding appropriately. All cranial nerves intact. He moves extremities without difficulty. He normally ambulates without assistance or assistive devices. LABORATORY DATA: On admission showed a white cell count of 7700, hemoglobin 14, hematocrit 41, MCV 93 and platelet count 305,000 with a manual differential showed 66% polymorphs, 15% lymphocytes and 6% monocytes. His prothrombin time, INR and aPTT normal. D-dimer was high at 2.05. His serum sodium was 138, potassium 4.5, chloride 102, bicarbonate 26, anion gap of 10, BUN 34, creatinine 1.4. Estimated GFR was 49 mL per minute. His glucose was 114, lactic acid was 1.5, calcium was 9, magnesium 2.7. Total bilirubin is normal. AST, ALT, alkaline phosphatase are all elevated. CK was 31, beta natriuretic peptide was 76. Total protein 7.4 and total albumin was ____. His urinalysis essentially unremarkable. His coronavirus by PCR was positive. His influenza A and B were negative. IMAGING: His chest x-ray showed that the patient has diffuse right lung and left lower lung airspace opacities, likely consolidative process, such as pneumonia. As he is hypoxic and D-dimer was high, he had a CT angio of the chest, which showed no evidence of acute or chronic pulmonary embolism. There are multifocal consolidative changes involving all lobes of the lungs, favor multifocal pneumonia. Right hilar lymphadenopathy is likely reactive. ASSESSMENT AND PLAN: The patient therefore was admitted with the diagnoses of COVID-19 pneumonia and acute hypoxic respiratory failure. He was started on IV ceftriaxone and Zithromax together with dexamethasone and bronchodilator. We continued all his other medications, has multiple other medical problems including hypertension, hyperlipidemia, generalized osteoarthritis, trigeminal neuralgia, postherpetic neuralgia, and obstructive sleep apnea. ALEXIA/SHANNON/QASIM MCKEON: Adonis TID: [id number]
[2021-09-02] VITALS (23 sets, daily range): BP systolic 98–155; BP diastolic 54–93
[2021-09-02] MEDS: FAMOTIDINE 20 MG TABLET PO SCH ×2 (07:56→21:08)
[2021-09-02] MEDS: LACTOBACILLUS RHAMNOSUS GG 1 CAPSULE. PO SCH ×2 (07:56→21:07)
[2021-09-02] MEDS: ATORVASTATIN CALCIUM 20 MG TABLET PO SCH (07:56)
[2021-09-02] MEDS: ASPIRIN ENTERIC COATED 81 MG TABLET.DR. PO SCH (07:57)
[2021-09-02] MEDS: ASCORBIC ACID 1,000 MG TABLET PO SCH (07:58)
[2021-09-02] MEDS: LOSARTAN 50 MG TABLET. PO SCH ×2 (07:58→21:08)
[2021-09-02] MEDS: AZITHROMYCIN 250 MG TABLET. PO SCH (07:58)
[2021-09-02] MEDS: DEXAMETHASONE SOD PHOS 4 MG/ML VIAL. IVP SCH (08:01)
[2021-09-02] MEDS: carBAMazepine 200 MG TABLET PO SCH ×2 (08:02→21:07)
[2021-09-02] MEDS: BUDESONIDE 0.5 MG/2 ML NEBU NEB SCH ×2 (08:57→20:00)
[2021-09-02] MEDS: ENOXAPARIN 40 MG/0.4 ML SYRINGE. SQ SCH (10:48)
[2021-09-02] MEDS: ZINC SULFATE 220 MG CAPSULE. PO SCH (12:41)
--- NOTE | 2021-09-02 15:18 | NUR ---
Nursing notes PT in bed reports no pain, and states he is feeling much better today. Assessments done, coarse crackles at the base of both lungs. Head of bed elevated, incentive spirometer given to PT to use to aid with opening the airway. PT able to eat 75% of breakfast and 50% of launch, given some ice chips. PT reported loss of appetite which is much better from the day before. Vitals assess hourly per doctors orders with oxygen fluctuating between 88% and 94% on 8 litters of oxygen. PT told to cough and deep breath when up and to let the nurse know if he needs anything. Bed low, call light within reach, urinal at bed side, PT watching TV. Will continue to monitor.
[2021-09-02] MEDS: MELATONIN 3 MG TABLET PO PRN (21:08)
--- NOTE | 2021-09-02 21:42 | PN ---
DATE: 09/02/2021 SUBJECTIVE: The patient is resting, slightly propped up in bed, eating his lunch comfortably, in no apparent distress. On questioning him, he is feeling much better, all his aches and pains have resolved. His appetite is improving. He is now on 8 liters of oxygen, maintaining his oxygen saturation at 94%. PHYSICAL EXAMINATION: GENERAL: When I examined him, he was somewhat pale, but no jaundice, cyanosis or thyromegaly. No jugular venous distention. No limb edema. VITAL SIGNS: His heart rate was 75, blood pressure is 127/62, temperature was 98.5, respiratory rate was 14 and oxygen saturation was 94% on 8 liters of oxygen. HEAD, EYES, EARS, NOSE AND THROAT: Normocephalic, atraumatic. NECK: Supple. HEART: Normal first and second heart sounds, no gallop or murmur. CHEST: Shows central trachea, equal bilateral expansion, air entry,bilateral basal crepitation. I could not really appreciate any rhonchi. ABDOMEN: Slightly distended, soft, nontender. NEUROLOGIC: He was awake, alert, responding appropriately. All cranial nerves intact. He moves extremities without difficulty. His intake over the last 24 hours was 1200, no output was recorded. LABORATORY DATA: There is no lab work done this morning. As of yesterday, his white cell count was 6000, hemoglobin 13, hematocrit 38, MCV 93, and platelet count of ___. His chemistry showed that his serum sodium 138, potassium 5, chloride 104, bicarbonate 22, anion gap of 12, BUN 28, creatinine 1.2. Estimated GFR was 59 mL per minute. His glucose 91, and calcium was 8.8. ASSESSMENT: 1. COVID-19 pneumonia. 2. Acute hypoxic respiratory failure. 3. The patient has multiple other medical problems including: A. Hypertension. B. Hyperlipidemia. C. Obstructive sleep apnea. D. Generalized osteoarthritis. E. Transient ischemic attacks. F. Trigeminal neuralgia. H. Shingles and postherpetic neuralgia. PLAN: To continue with oxygen supplementation, titrate as tolerated. Continue with IV dexamethasone. Continue with ceftriaxone and Zithromax. Continue with Lovenox for DVT prophylaxis. Continue with vitamin D, and zinc sulfate. QUINTIN DR: Adonis TID: [id number]
[2021-09-03] VITALS (22 sets, daily range): BP systolic 100–143; BP diastolic 60–89
--- NOTE | 2021-09-03 04:00 | NUR ---
Nursing note: Pt requested melatonin at HS; rested comfortably throughout shift. Pt continues to require 8L O2 via NC, satting 91-94%. Pt had no c/o pain, call light in reach.
[2021-09-03 07:17] LABS: BASO # 0.1 x10^3/uL (0.0-0.2); BASO % 2 % (0-3); EOS # 0.5 x10^3/uL (0.0-0.7); EOS % 9 % (0-3); HEMATOCRIT 37.9 % (39.0-53.0); HEMOGLOBIN 12.9 g/dL (13.0-17.5); LYMPH % 18 % (24-48); MEAN CORPUSCULAR HEMOGLOBIN 32 pg (25-35); MEAN CORPUSCULAR HGB CONC 34 g/dL (31-37); MEAN CORPUSCULAR VOLUME 93 fL (79-100); MONO # 0.5 x10^3/uL (0.0-1.1); MONO % 8 % (0-9); NEUT # 3.6 x10^3uL (1.8-7.7); NEUT % 63 % (31-73); PLATELET COUNT 286 x10^3/uL (140-400); RED BLOOD COUNT 4.07 x10^6/uL (4.30-5.70); RED CELL DISTRIBUTION WIDTH 12.3 % (11.5-14.5); WHITE BLOOD COUNT 5.8 x10^3/uL (4.0-11.0)
[2021-09-03 07:36] LABS: ALBUMIN 2.4 g/dL (3.4-5.0); ALBUMIN/GLOBULIN RATIO 0.6 (1.0-1.7); CALCIUM 8.6 mg/dL (8.5-10.1); CREATININE 1.3 mg/dL (0.7-1.3); GFR 54.3; POTASSIUM 4.4 mmol/L (3.5-5.1); TOTAL BILIRUBIN 0.4 mg/dL (0.2-1.0); TOTAL PROTEIN 6.7 g/dL (6.4-8.2)
[2021-09-03] MEDS: DEXAMETHASONE SOD PHOS 4 MG/ML VIAL. IVP SCH (08:44)
[2021-09-03] MEDS: BUDESONIDE 0.5 MG/2 ML NEBU NEB SCH ×2 (08:45→20:23)
[2021-09-03] MEDS: LACTOBACILLUS RHAMNOSUS GG 1 CAPSULE. PO SCH ×2 (08:45→20:23)
[2021-09-03] MEDS: ZINC SULFATE 220 MG CAPSULE. PO SCH (08:45)
[2021-09-03] MEDS: ASPIRIN ENTERIC COATED 81 MG TABLET.DR. PO SCH (08:45)
[2021-09-03] MEDS: ASCORBIC ACID 1,000 MG TABLET PO SCH (08:45)
[2021-09-03] MEDS: carBAMazepine 200 MG TABLET PO SCH ×2 (08:46→20:23)
[2021-09-03] MEDS: LOSARTAN 50 MG TABLET. PO SCH ×2 (08:46→20:23)
[2021-09-03] MEDS: ATORVASTATIN CALCIUM 20 MG TABLET PO SCH (08:46)
[2021-09-03] MEDS: AZITHROMYCIN 250 MG TABLET. PO SCH (08:46)
[2021-09-03] MEDS: FAMOTIDINE 20 MG TABLET PO SCH ×2 (08:47→20:23)
[2021-09-03] MEDS: ENOXAPARIN 40 MG/0.4 ML SYRINGE. SQ SCH (10:15)
[2021-09-03] MEDS: MELATONIN 3 MG TABLET PO PRN (20:22)
--- NOTE | 2021-09-03 23:00 | PN ---
DATE: 09/03/2021 SUBJECTIVE: The patient is resting, slightly propped up in bed, in no apparent distress. He is now on 5 liters of oxygen, maintaining his oxygen saturation at 94%. He actually sat in chair for most 2 to 3 hours and generally feeling much improved. His appetite continued to be improving slowly. OBJECTIVE: GENERAL: On examining him, he was somewhat pale, no jaundice, cyanosis or thyromegaly. No jugular venous distention. No limb edema. VITAL SIGNS: Heart rate was 63, blood pressure is 110/71, temperature was 98.2, respiratory rate was 16 and oxygen saturation was 94% on 5 liters of oxygen. HEAD, EYES, EARS, NOSE, AND THROAT: Normocephalic, atraumatic. NECK: Supple. HEART: Showed normal first and second heart sounds. No gallop, rub or murmur. CHEST: Shows central trachea, equal bilateral chest expansion, air entry, vesicular breath sounds with crepitation bilaterally, few scattered rhonchi. ABDOMEN: Distended, soft, nontender. NEUROLOGIC: He was grossly intact. His intake was 820, output was 750. LABORATORY DATA: This morning showed a white cell count 5800, hemoglobin 12.9, hematocrit 38, MCV 93, and platelet count 286,000. His chemistry showed a serum sodium 138, potassium 4.4, chloride 104, bicarbonate 28, anion gap of 6, BUN 22, creatinine 1.3. Estimated GFR was 54 mL per minute. His glucose 101, calcium was 8.6. Total bilirubin are normal. AST, ALT, alkaline phosphatase slightly elevated. His troponin I high sensitivity was 10. Total protein 6.7, albumin was 2.4. His TSH was normal at 3.586. ASSESSMENT: 1. COVID-19 pneumonia. 2. Acute hypoxic respiratory failure. 3. The patient has multiple other medical problems including: A. Hypertension. B. Hyperlipidemia. C. Obstructive sleep apnea. D. Generalized osteoarthritis. E. Transient ischemic attacks. F. Trigeminal neuralgia. H. Shingles and postherpetic neuralgia. PLAN: To continue with oxygen supplementation, titrate down as tolerated. He is now down to 5 liters per minute. Continue with IV dexamethasone. Continue with ceftriaxone and Zithromax. Continue with Lovenox for DVT prophylaxis. Continue with vitamin D, and zinc sulfate. Continue with physical and occupational therapy. AMM/TAYLA DR: Adonis TID: [id number]
[2021-09-04] VITALS (12 sets, daily range): BP systolic 99–126; BP diastolic 48–89
[2021-09-04 07:33] LABS: ALBUMIN 2.4 g/dL (3.4-5.0); ALBUMIN/GLOBULIN RATIO 0.6 (1.0-1.7); CALCIUM 8.3 mg/dL (8.5-10.1); CREATININE 1.2 mg/dL (0.7-1.3); GFR 59.5; POTASSIUM 4.4 mmol/L (3.5-5.1); TOTAL BILIRUBIN 0.4 mg/dL (0.2-1.0); TOTAL PROTEIN 6.4 g/dL (6.4-8.2)
[2021-09-04] MEDS: BUDESONIDE 0.5 MG/2 ML NEBU NEB SCH ×2 (07:44→21:29)
[2021-09-04] MEDS: DEXAMETHASONE SOD PHOS 4 MG/ML VIAL. IVP SCH (07:44)
[2021-09-04] MEDS: LACTOBACILLUS RHAMNOSUS GG 1 CAPSULE. PO SCH ×2 (07:44→20:16)
[2021-09-04] MEDS: ASPIRIN ENTERIC COATED 81 MG TABLET.DR. PO SCH (07:45)
[2021-09-04] MEDS: ASCORBIC ACID 1,000 MG TABLET PO SCH (07:45)
[2021-09-04] MEDS: ZINC SULFATE 220 MG CAPSULE. PO SCH (07:45)
[2021-09-04] MEDS: ATORVASTATIN CALCIUM 20 MG TABLET PO SCH (07:46)
[2021-09-04] MEDS: LOSARTAN 50 MG TABLET. PO SCH ×2 (07:46→20:17)
[2021-09-04] MEDS: carBAMazepine 200 MG TABLET PO SCH ×2 (07:47→20:16)
[2021-09-04] MEDS: AZITHROMYCIN 250 MG TABLET. PO SCH (07:47)
[2021-09-04] MEDS: FAMOTIDINE 20 MG TABLET PO SCH ×2 (07:48→20:16)
[2021-09-04] MEDS: ENOXAPARIN 40 MG/0.4 ML SYRINGE. SQ SCH (11:29)
[2021-09-04] MEDS: POLYETHYLENE GLYCOL 3350 17 GM PACKET. PO PRN (20:17)
[2021-09-04] MEDS: MELATONIN 3 MG TABLET PO PRN (20:17)
--- NOTE | 2021-09-04 21:13 | PN ---
DATE: 09/04/2021 SUBJECTIVE: The patient is resting, slightly propped up in bed, in no apparent distress. He is feeling generally much better. His oxygen requirement is down to 3 liters, maintaining his oxygen saturation at 92-93%. He actually managed to go to have a shower today and his appetite is slowly improving. PHYSICAL EXAMINATION: GENERAL: When I examined him, he looked well and was clearly in no apparent respiratory distress. No pallor, jaundice, cyanosis or thyromegaly. No jugular venous distention. No limb edema. VITAL SIGNS: His heart rate was 79, blood pressure was 113/89, temperature was 97.2, respiratory rate was 16, and oxygen saturation was 94% on 3 liters of oxygen. HEAD, EYES, EARS, NOSE, AND THROAT: Normocephalic, atraumatic. NECK: Supple. HEART: Showed normal first and second heart sounds. No gallop, no murmur. CHEST: Clear to auscultation. No crepitation or rhonchi. ABDOMEN: Distended, soft, nontender. NEUROLOGIC: He is grossly intact. His intake was 600, output was 600. LABORATORY DATA: Lab work showed a white cell count of 5800, hemoglobin 13, hematocrit 38, MCV 93, and platelet count 286,000. Serum sodium was 135, potassium 3.4, chloride 104, bicarbonate 27, anion gap of 4, BUN 19, creatinine 1.2. Estimated GFR was 59 mL per minute. His glucose was 92, calcium was 8.3. Total bilirubin is normal. AST, ALT, alkaline phosphatase are slightly elevated. Total protein 6.4, albumin 2.4. His blood cultures so far negative after 4 days. ASSESSMENT: 1. Acute hypoxic respiratory failure. 2. COVID-19 pneumonia. 3. The patient has multiple other medical problems including: A. Hypertension. B. Hyperlipidemia. C. Obstructive sleep apnea. D. Generalized osteoarthritis. E. Transient ischemic attacks. F. Trigeminal neuralgia. G. Shingles and postherpetic neuralgia. PLAN: To continue with oxygen supplementation, titrate down as tolerated. He is now on 3 liters of oxygen per minute. Continue with IV dexamethasone. Continue with ceftriaxone and Zithromax. Continue with Lovenox for DVT prophylaxis. Continue with vitamin D and zinc sulfate. Continue with physical and occupational therapy. We will evaluate him again tomorrow and he might be able to be discharged home. SULEIMAN DR: Adonis TID: [id number]
[2021-09-05 06:20] VITALS: BP 115/58
[2021-09-05 07:25] LABS: ALBUMIN 2.5 g/dL (3.4-5.0); ALBUMIN/GLOBULIN RATIO 0.6 (1.0-1.7); CALCIUM 8.3 mg/dL (8.5-10.1); CREATININE 1.1 mg/dL (0.7-1.3); GFR 65.8; POTASSIUM 4.5 mmol/L (3.5-5.1); TOTAL BILIRUBIN 0.4 mg/dL (0.2-1.0); TOTAL PROTEIN 6.5 g/dL (6.4-8.2)
[2021-09-05] MEDS: ENOXAPARIN 40 MG/0.4 ML SYRINGE. SQ SCH (08:07)
[2021-09-05] MEDS: ASCORBIC ACID 1,000 MG TABLET PO SCH (08:09)
[2021-09-05] MEDS: ZINC SULFATE 220 MG CAPSULE. PO SCH (08:09)
[2021-09-05] MEDS: AZITHROMYCIN 250 MG TABLET. PO SCH (08:09)
[2021-09-05] MEDS: FAMOTIDINE 20 MG TABLET PO SCH ×2 (08:09→20:55)
[2021-09-05] MEDS: ATORVASTATIN CALCIUM 20 MG TABLET PO SCH (08:09)
[2021-09-05] MEDS: LACTOBACILLUS RHAMNOSUS GG 1 CAPSULE. PO SCH ×2 (08:09→20:55)
[2021-09-05] MEDS: DEXAMETHASONE SOD PHOS 4 MG/ML VIAL. IVP SCH (08:10)
[2021-09-05] MEDS: LOSARTAN 50 MG TABLET. PO SCH ×2 (08:10→20:55)
[2021-09-05] MEDS: BUDESONIDE 0.5 MG/2 ML NEBU NEB SCH ×2 (08:10→19:17)
[2021-09-05] MEDS: ASPIRIN ENTERIC COATED 81 MG TABLET.DR. PO SCH (08:10)
[2021-09-05] MEDS: carBAMazepine 200 MG TABLET PO SCH ×2 (08:12→20:55)
[2021-09-05 09:39] LABS: BASO # 0.1 x10^3/uL (0.0-0.2); BASO % 3 % (0-3); EOS # 0.2 x10^3/uL (0.0-0.7); EOS % 4 % (0-3); HEMATOCRIT 37.8 % (39.0-53.0); LYMPH # 1.2 x10^3/uL (1.0-4.8); LYMPH % 25 % (24-48); MEAN CORPUSCULAR HEMOGLOBIN 32 pg (25-35); MEAN CORPUSCULAR HGB CONC 34 g/dL (31-37); MEAN CORPUSCULAR VOLUME 93 fL (79-100); MONO # 0.4 x10^3/uL (0.0-1.1); MONO % 9 % (0-9); NEUT # 2.8 x10^3uL (1.8-7.7); NEUT % 59 % (31-73); PLATELET COUNT 236 x10^3/uL (140-400); RED BLOOD COUNT 4.06 x10^6/uL (4.30-5.70); RED CELL DISTRIBUTION WIDTH 12.5 % (11.5-14.5); WHITE BLOOD COUNT 4.8 x10^3/uL (4.0-11.0)
--- NOTE | 2021-09-05 10:04 | PN ---
DATE: 09/01/2021 SUBJECTIVE: The patient is resting, slightly propped up, generally feeling slightly better. He continued to have anorexia and generalized aches and pains, although generally he feels slightly better than yesterday. PHYSICAL EXAMINATION: GENERAL: When I examined him, he looked well and was clearly in no apparent respiratory distress. No pallor, jaundice, cyanosis or thyromegaly. No jugular venous distention. No limb edema. VITAL SIGNS: His heart rate was 91, blood pressure was 105/61, temperature was 98.1, respiratory rate 21, and oxygen saturation was 91% on 10 liters of oxygen. HEAD, EYES, EARS, NOSE, AND THROAT: Normocephalic, atraumatic. NECK: Supple. HEART: Showed normal first and second heart sounds. No gallop, rub or murmur. CHEST: Clear to auscultation, no crepitation or rhonchi. ABDOMEN: Distended, soft, nontender. NEUROLOGIC: He was grossly intact. LABORATORY DATA: This morning showed a white cell count 6100, hemoglobin 13, hematocrit 38, MCV 93, and a platelet count of 282,000 with a manual differential shows 61% polymorphs, 16% lymphocytes, 8% monocytes. His serum sodium was 138, potassium 5, chloride 104, bicarbonate 22, anion gap of 12, BUN 28, creatinine 1.2. Estimated GFR was 59, glucose 91, and calcium was 8.8. Troponin high sensitivity was 10. TSH was 3.586. His blood cultures so far showed no growth after 1 day. ASSESSMENT: 1. This is a 71-year-old male patient who was admitted with COVID-19 pneumonia. 2. Acute hypoxic respiratory failure. 3. He has multiple other medical problems including: A. Hypertension. B. Hyperlipidemia. C. Obstructive sleep apnea. D. Generalized osteoarthritis. E. Trigeminal neuralgia. F. Shingles and postherpetic neuralgia. PLAN: To continue with IV antibiotic. Continue with dexamethasone. Continue with all his other medication. We will monitor his lab work and hopefully titrate his oxygen down as tolerated Dictation Ends Here ALEXIA/ARIEL DR: Adonis TID: [id number]
[2021-09-05 19:00] VITALS: BP 133/77
[2021-09-05] MEDS: POLYETHYLENE GLYCOL 3350 17 GM PACKET. PO PRN (20:55)
[2021-09-05] MEDS: MELATONIN 3 MG TABLET PO PRN (20:55)
[2021-09-05 23:00] VITALS: BP 126/74
--- NOTE | 2021-09-05 23:21 | PN ---
DATE: 09/05/2021 SUBJECTIVE: The patient is resting almost flat in bed, in no apparent distress, awake, alert. On questioning him, he denied any complaint apart from his appetite has not returned back completely. In particular, denied any chest pain, shortness of breath, cough or phlegm. PHYSICAL EXAMINATION: GENERAL: When I examined him, he looked well and was clearly in no apparent respiratory distress. No pallor, jaundice, cyanosis or thyromegaly. No jugular venous distention. No limb edema. VITAL SIGNS: His heart rate was 81, blood pressure was 115/58, temperature 97.8, respiratory rate was 15 and oxygen saturation was 93% on 3 liters of oxygen. HEAD, EYES, EARS, NOSE, AND THROAT: Normocephalic, atraumatic. NECK: Supple. HEART: Showed normal first and second heart sounds. No gallop, rub or murmur. CHEST: Central trachea, equal bilateral chest expansion, air entry, vesicular breath sounds. No crepitation or rhonchi. ABDOMEN: Distended, soft, nontender. NEUROLOGIC: He was grossly intact. His intake was 740, output was 400. LABORATORY DATA: Showed white cell count of 4800, hemoglobin 13, hematocrit 39, MCV 93 and platelet count 236,000 with normal manual differential. Serum sodium was 138, potassium 4.5, chloride 105, bicarbonate 26, anion gap of 7, BUN 17, creatinine 1.1. Estimated GFR was 66 mL per minute. His glucose was 94, calcium was 8.3. Total bilirubin was normal. AST, ALT, alkaline phosphatase are drifting slowly aboard. His total protein 6.5, albumin was 2.5. His prothrombin time, INR and APTT normal. D-dimer was 2.05. Urinalysis essentially unremarkable. ASSESSMENT: 1. This is a 71-year-old male patient who was admitted with COVID-19 pneumonia. 2. Acute hypoxic respiratory failure. 3. Has multiple medical problems including: A. Hypertension. B. Hyperlipidemia. C. Obstructive sleep apnea. D. Generalized osteoarthritis. E. Trigeminal neuralgia, shingles and postherpetic neuralgia. PLAN: To continue with dexamethasone. Continue with all other medication. I will repeat his labs tomorrow and do a 6-minute walk tomorrow and hopefully discharge him home. ALEXIA/SU DR: ALEXIA/maria dolores TID: [id number]
[2021-09-06 05:00] VITALS: BP 131/80
[2021-09-06 06:38] LABS: ALBUMIN 2.6 g/dL (3.4-5.0); ALBUMIN/GLOBULIN RATIO 0.7 (1.0-1.7); CALCIUM 8.8 mg/dL (8.5-10.1); CREATININE 1.2 mg/dL (0.7-1.3); GFR 59.5; POTASSIUM 4.4 mmol/L (3.5-5.1); TOTAL BILIRUBIN 0.4 mg/dL (0.2-1.0); TOTAL PROTEIN 6.5 g/dL (6.4-8.2)
[2021-09-06 07:00] VITALS: BP 126/71
[2021-09-06] MEDS: FAMOTIDINE 20 MG TABLET PO SCH (08:40)
[2021-09-06] MEDS: ASCORBIC ACID 1,000 MG TABLET PO SCH (08:40)
[2021-09-06] MEDS: ATORVASTATIN CALCIUM 20 MG TABLET PO SCH (08:40)
[2021-09-06] MEDS: ZINC SULFATE 220 MG CAPSULE. PO SCH (08:40)
[2021-09-06] MEDS: ENOXAPARIN 40 MG/0.4 ML SYRINGE. SQ SCH (08:40)
[2021-09-06 08:41] VITALS: BP 131/80
[2021-09-06] MEDS: LACTOBACILLUS RHAMNOSUS GG 1 CAPSULE. PO SCH (08:41)
[2021-09-06] MEDS: LOSARTAN 50 MG TABLET. PO SCH (08:41)
[2021-09-06] MEDS: ASPIRIN ENTERIC COATED 81 MG TABLET.DR. PO SCH (08:42)
[2021-09-06] MEDS: carBAMazepine 200 MG TABLET PO SCH (08:42)
[2021-09-06] MEDS: DEXAMETHASONE SOD PHOS 4 MG/ML VIAL. IVP SCH (08:42)
[2021-09-06] MEDS: BUDESONIDE 0.5 MG/2 ML NEBU NEB SCH (09:27)
[2021-09-06] MEDS: POLYETHYLENE GLYCOL 3350 17 GM PACKET. PO PRN (09:48)
[2021-09-06] MEDS ORDERED: DEXA6TAB PO (13:32)
[2021-09-06] MEDS ORDERED: CEFD300C PO (13:32)
--- NOTE | 2021-09-06 14:24 | NUR ---
PT ON 93% ON 1L NASAL CANULA. PT STATES THAT HE HAS AT HOME OXYGEN ALREADY SET UP. DR. SWEET ASKED THAT HE HAD A CONCENTRATOR AND PORTABLE TANKS, PT STATES THAT HE DOES. PT IV AND HEART MONITOR DC'D. PT LEFT WITH DISCHARGE PAPERWORK AND BELONGINGS. PT PICKED HIM UP.
--- NOTE | 2021-09-06 15:16 | DS ---
DATE OF DISCHARGE: 09/06/2021 HOSPITAL COURSE: The patient is a 71-year-old male patient who was admitted on 08/31/2021 with increasing shortness of breath and increasing requirement of oxygen and was on 3 liters of oxygen, saturation fell below 90. His daughter, who is an RN at [facility], asked him to turn the oxygen up; however, he continued to have borderline oxygen and therefore, the daughter asked him to come to the Emergency Room where he was extensively investigated. Apparently was vaccinated for COVID using Moderna last year; however, he never got his booster. He denied any recent travel or recent change in medication. Reports extreme fatigue and dyspnea with any attempts at movement. He did complain of fever, chills, dyspnea, nonproductive cough, myalgia, arthralgia, malaise. Has not received flu vaccination this season. He denied any history of immunosuppression. He is following with . He was extensively investigated in the Emergency Room with lab work as well as imaging studies. His white cell count was normal at 7.7 as well as his platelets. His chemistry showed that his liver enzymes are slightly elevated. Other than that, his kidney function were normal. His D-dimer was high at 2.05. Urinalysis essentially unremarkable and his coronavirus PCR was positive. Influenza A and B were negative. Has has had a chest x-ray, which showed that the patient has mediastinal and hilar contours normal. The heart is not enlarged. He has diffuse right lung and left lower lung airspace opacities, likely consolidative process such as pneumonia. No pleural effusion or pneumothorax. CT angio showed that there is no evidence of acute or chronic pulmonary embolism. Multifocal consolidative changes involving all lobes of the lung, likely COVID-19 pneumonia. He was admitted with COVID-19 pneumonia, acute hypoxic respiratory failure, was treated with IV antibiotic in the form of ceftriaxone as well as Zithromax and dexamethasone. He did actually well. In fact he is now only on 3 liters of oxygen, maintaining his oxygen saturation at 91%-94%. His liver enzymes continue to be slightly elevated, although they are turning the corner today. PHYSICAL EXAMINATION: GENERAL: When I examined him, he looked well and was clearly in no apparent respiratory distress. No pallor, jaundice, cyanosis or thyromegaly. No jugular venous distention. No limb edema. VITAL SIGNS: His heart rate was 57, blood pressure was 131/80, temperature was 98.3, respiratory rate 20, and oxygen saturation was 92% on 3 liters of oxygen. HEAD, EYES, EARS, NOSE, AND THROAT: Normocephalic, atraumatic. NECK: Supple. HEART: Showed normal first and second heart sounds. No gallop, rub or murmur. CHEST: Clear to auscultation. No crepitation or rhonchi. ABDOMEN: Distended, soft, nontender. NEUROLOGIC: He was grossly intact. As of yesterday, his intake was 900, output was 500. His white cell count was 4800, hemoglobin 13, hematocrit 38, MCV 93, and platelet count 236,000. Serum sodium was 138, potassium 4.4, chloride 104, bicarbonate 27, anion gap of 7, BUN 16, creatinine 1.2. Estimated GFR was 59 mL per minute. His glucose 101, calcium was 8.8. Total bilirubin is normal. AST, ALT, alkaline phosphatase are elevated, but trending down. His total protein 6.5, albumin 2.6. D-dimer was 2.05. Prothrombin time, INR and APTT are normal. Urinalysis essentially unremarkable. DISCHARGE MEDICATIONS: The patient was discharged home to continue on cefdinir 300 mg twice a day for 4 more days and dexamethasone 6 mg daily for 5 more days. He should continue with aspirin 81 mg once a day, carbamazepine 200 mg twice a day, losartan potassium 50 mg p.o. b.i.d. and Crestor 5 mg daily. FINAL DISCHARGE DIAGNOSES: 1. COVID-19 pneumonia. 2. Acute hypoxic respiratory failure. 3. The patient has multiple other medical problems including: A. Hypertension. B. Hyperlipidemia. C. Obstructive sleep apnea. D. Generalized osteoarthritis. E. Trigeminal neuralgia. F. Shingles and postherpetic neuralgia. ALEXIA/JERRY/LAKE DR: Adonis TID: [id number]
== END 2021-09-06 14:25 | disposition home or self-care (01) | DRG 177 ==
LOC: ER 21:44 → 1 SOUTH 08-31 17:09 → ICU 09-01 02:00 → 1 SOUTH 09-05 15:53
PROVIDERS: ADMIT Internal Medicine; ATTEND Internal Medicine
DX: U07.1 COVID-19 (principal); J96.01 Acute respiratory failure with hypoxia; J12.82 Pneumonia due to coronavirus disease 2019; B02.29 Other postherpetic nervous system involvement; G45.9 Transient cerebral ischemic attack, unspecified; E78.5 Hyperlipidemia, unspecified; G47.33 Obstructive sleep apnea (adult) (pediatric); G50.0 Trigeminal neuralgia; I10 Essential (primary) hypertension; I25.10 Atherosclerotic heart disease of native coronary artery without angina pectoris; I48.91 Unspecified atrial fibrillation; M15.9 Polyosteoarthritis, unspecified; Z80.3 Family history of malignant neoplasm of breast; Z86.73 Personal history of transient ischemic attack (TIA), and cerebral infarction without residual deficits; Z90.49 Acquired absence of other specified parts of digestive tract; R74.01 Elevation of levels of liver transaminase levels; R79.89 Other specified abnormal findings of blood chemistry
CPT/HCPCS: 36415; 71045; 71275; 80048; 80053; 80076; 81001; 82550; 83605; 83690; 83735; 83880; 84443; 84484; 85025; 85379; 85610; 85730; 87040; 87426; 87804; 93005; 94640; 96361; 96365; 96372; J0696; J1100; J1650; J7120; Q9967; U0003; 94664; 99285-25